=== PATIENT | female | born 1955 | race Caucasian/White ===

== ENCOUNTER 2018-03-12 15:19 | Emergency (ER) | payer OTHER ==
[2018-03-12 15:19] VITALS: BMI 29.2
[2018-03-12 15:53] VITALS: RESP 18
--- NOTE | 2018-03-12 16:19 | ED PDOC ---
"Arrival/HPI - General Chief Complaint: GI Problem Time Seen by Provider: 03/12/18 15:47 Historian: Patient, Family, [employer] (Family member on the phone) - History of Present Illness Narrative History of Present Illness (Text): 03/12/18 16:09 Pt is a 63 yr old female with PMH of DMII, HTN, and intestinal issues, presents today with daughter for left upper abdominal pain for the past 3 weeks or more and left chest pain for the past year. The patient does not speak any [place]yanese but through the family member states that she has the most discomfort after eating food and and takes over the counter medication that usually results in diarrhea. Pt has a lot of flatulence, nausea and dry mouth and decreased appetite as a result. Family member on the phone reports that she had an intestinal surgery in [place] about 2-4 yrs ago but family nor pt knows what was done. she takes Metformin, Atorvastatin and Metoprolol daily and is compliant with medications. Denies fever, shortness of breath, vomiting, GIB, dysuria, recent travel or any other pertinent finding. Time/Duration: > month Symptom Onset: Gradual Symptom Course: Unchanged Quality: Aching, Pressure, Tightness Severity Level: 4 Activities at Onset: Rest, Eating Context: Home Past Medical History - Provider Review Nursing Documentation Reviewed: Yes - Travel History Have you recently traveled outside [place] w/in the past 3 mons?: No - Infectious Disease Hx of Infectious Diseases: None - Tetanus Immunization Tetanus Immunization: Unknown - Cardiac Hx Cardiac Disorders: Yes Hx Hypertension: Yes - Pulmonary Hx Respiratory Disorders: No - Neurological Hx Neurological Disorder: No - HEENT Hx HEENT Disorder: Yes (uses glasses) - Renal Hx Renal Disorder: No - Endocrine/Metabolic Hx Endocrine Disorders: Yes Hx Diabetes Mellitus Type 2: Yes - Hematological/Oncological Hx Blood Disorders: No - Integumentary Hx Dermatological Disorder: No - Musculoskeletal/Rheumatological Hx Musculoskeletal Disorders: No Hx Falls: No - Gastrointestinal Hx Gastrointestinal Disorders: Yes Other/Comment: Gas pains, heart burn. - Genitourinary/Gynecological Hx Genitourinary Disorders: No - Psychiatric Hx Psychophysiologic Disorder: No Hx Substance Use: No - Surgical History Other/Comment: abdominal? - Anesthesia Hx Anesthesia: Yes Hx Anesthesia Reactions: No Hx Malignant Hyperthermia: No Family/Social History - Physician Review Nursing Documentation Reviewed: Yes Family/Social History: Unknown Family HX Smoking Status: Never Smoked Hx Alcohol Use: No Hx Substance Use: No Allergies/Home Meds Allergies/Adverse Reactions: Allergies No Known Allergies Allergy (Verified 02/11/16 00:56) Review of Systems - Review of Systems Systems not reviewed;Unavailable: Language Barrier Constitutional: Fatigue, Fevers Eyes: Normal ENT: Normal Respiratory: Normal Cardiovascular: Chest Pain. absent: Palpitations Gastrointestinal: Abdominal Pain, Stool Changes, Diarrhea, Nausea, Appetite Changes, Food Intolerance. absent: Constipation, Vomiting, Hematochezia, Hematemesis Genitourinary Female: Normal. absent: Dysuria, Frequency Musculoskeletal: Normal. absent: Arthralgias, Back Pain Skin: Normal Neurological: Normal Endocrine: Normal Hemo/Lymphatic: Normal Psychiatric: Normal Physical Exam Vital Signs Reviewed: Yes Vital Signs Temp Pulse Resp BP Pulse Ox 03/12/18 20:12 98.6 F 60 18 142/93 H 98 03/12/18 16:40 60 18 100 03/12/18 15:19 97.7 F 61 18 151/82 H 100 Temperature: Afebrile Blood Pressure: Hypertensive Pulse: Regular Respiratory Rate: Normal Appearance: Positive for: Well-Appearing, Non-Toxic, Comfortable Pain Distress: Mild Mental Status: Positive for: Alert and Oriented X 3 Finger Stick Blood Glucose: 218 - Systems Exam Head: Present: Atraumatic, Normocephalic Pupils: Present: PERRL Extroacular Muscles: Present: EOMI Conjunctiva: Present: Normal Mouth: Present: Moist Mucous Membranes Neck: Present: Normal Range of Motion Respiratory/Chest: Present: Clear to Auscultation, Good Air Exchange. No: Respiratory Distress, Accessory Muscle Use, Decreased Breath Sounds, Rales, Rhonchi, Tachypneic, Tender to Palpation Cardiovascular: Present: Regular Rate and Rhythm, Normal S1, S2. No: Murmurs, Irregular Rhythm, Tachycardic, Bradycardic Abdomen: Present: Normal Bowel Sounds. No: Tenderness, Distention, Peritoneal Signs, Rebound, Guarding, McBurney's Point Tender, Rovsing's Sign Present, Hernias, Mass/Organomegaly Back: Present: Normal Inspection. No: CVA Tenderness, Midline Tenderness, Paraspinal Tenderness Upper Extremity: Present: Normal Inspection, Normal ROM, NORMAL PULSES, Swelling (left forearm (for the past 8 mnths)), Neurovascularly Intact, Capillary Refill < 2s. No: Cyanosis, Edema, Tenderness, Erythema Lower Extremity: Present: Normal Inspection, NORMAL PULSES, Normal ROM, Temperature Abnormalties, Neurovascularly Intact, Capillary Refill < 2 s. No: Edema, CALF TENDERNESS, Cyanosis Neurological: Present: GCS=15, CN II-XII Intact, Speech Normal, Motor Func Grossly Intact Skin: Present: Warm, Dry, Normal Color. No: Rashes Lymphatic: No: Cervical Adenopathy, Axillary Adenopathy Psychiatric: Present: Alert, Oriented x 3, Normal Insight, Normal Concentration Medical Decision Making ED Course and Treatment: 03/12/18 16:19 Impression Pt is a 63 yr old female with PMH of DMII, HTN, and intestinal issues, presents today with daughter for left upper abdominal pain for the past 3 weeks or more and left chest pain for the past year. Working Dx: diverticulitis, PUD, bowel obstruction, mass Plan Labs Abdominal CT with IV contrast CXR, Cardiac ISO Pepcid Progress Note 03/12/18 17:21 Pt reports no change in abdominal discomfort after taking pepcid Fluids ordered and pending admin CT pending CXR reveals no active disease EKG reveals NSR with a rate of 69 03/12/18 19:42 No change in status; continues to have 'heartburn' Son at bedside who speaks [place] island[place] and reports that she had a biopsy procedure done in [place] via colonoscopy; she was given a ppi and H2 rep medina CT results still pending at this time UA reveals UTI-->Bactrim DS STAT 03/12/18 19:46 CT IMPRESSION: No acute findings. Discussed findings with family Advised to follow up with GI specialist for endoscopic exam to r/o PUD 03/12/18 20:14 Bactrim DS BID x 5 days #10 for UTI - Lab Interpretations Lab Results: 03/12/18 16:53 03/12/18 16:53 Lab Results 03/12/18 18:55: Urine Color Colorless, Urine Appearance Clear, Urine pH 7.0, Ur Specific Cher[place] <= 1.005, Urine Protein Negative, Urine Glucose (UA) Negative, Urine Ketones Negative, Urine Blood Negative, Urine Nitrate Negative, Urine Bilirubin Negative, Urine Urobilinogen 0.2, Ur Leukocyte Esterase Moderate H, Urine RBC Negative, Urine WBC 5 - 10, Ur Epithelial Cells 0 - 2, Urine Bacteria Trace 03/12/18 16:53: pO2 46, VBG pH 7.38, VBG pCO2 48.0, VBG HCO3 28.4 H, VBG Total CO2 29.9 H, VBG O2 Sat (Calc) 86.8 H, VBG Base Excess 2.5 H, VBG Potassium 3.9, Sodium 139.0, Chloride 104.0, Glucose 184 H, Lactate 1.6, FiO2 21.0, Venous Blood Potassium 3.9 03/12/18 16:53: Sodium 142, Chloride 103, Potassium 4.1, Carbon Dioxide 25, Anion Gap 18, BUN 11, Creatinine 0.6 L, Est GFR ( Amer) > 60, Est GFR ( Non-Af Amer) > 60, Random Glucose 169 H, Calcium 9.6, Total Bilirubin 0.3, AST 31, ALT 30, Alkaline Phosphatase 66, Lactate Dehydrogenase 454, Total Creatine Kinase 55, Troponin I < 0.01, Total Protein 8.1, Albumin 4.5, Globulin 3.6, Albumin/Globulin Ratio 1.2, Amylase 81, Lipase 46 03/12/18 16:53: PT 11.4, INR 1.00, APTT 31.5 03/12/18 16:53: WBC 9.3, RBC 6.05, Hgb 12.9, Hct 41.1, MCV 67.9 L, MCH 21.3 L, MCHC 31.4, RDW 14.8 H, Plt Count 282, MPV 9.4, Gran % 62.8, Lymph % (Auto) 30.0 , Hinds % (Auto) 6.1 H, Eos % (Auto) 0.6 L, Baso % (Auto) 0.5, Gran # 5.81, Lymph # (Auto) 2.8, Hinds # (Auto) 0.6, Eos # (Auto) 0.1, Baso # (Auto) 0.05 03/12/18 15:43: POC Glucose (mg/dL) 218 H - RAD Interpretation Narrative RAD Interpretations (Text): 03/12/18 17:13 No active appreciated on CXR 03/12/18 19:45 EXAM: CT Abdomen and Pelvis With Intravenous Contrast CLINICAL HISTORY: 63 years old, female; Pain; Abdominal pain; Acute; Additional info: R/O diverticulitis TECHNIQUE: Axial computed tomography images of the abdomen and pelvis with intravenous contrast. All CT scans at this facility use one or more dose reduction techniques, viz.: automated exposure control; ma/kV adjustment per patient size (including targeted exams where dose is matched to indication; i.e. head); or iterative reconstruction technique. CONTRAST: 100 mL of omni 350 administered intravenously. COMPARISON: No relevant prior studies available. FINDINGS: Lung bases: Unremarkable. No mass. No consolidation. ABDOMEN: Liver: Fatty infiltration of the liver. Gallbladder and bile ducts: The gallbladder is not visualized. No ductal dilation. Pancreas: Pancreas evaluation is limited. No ductal dilation. Spleen: Unremarkable. No splenomegaly. Adrenals: Unremarkable. No mass. Kidneys and ureters: Unremarkable. No solid mass. No hydronephrosis. Stomach and bowel: Bowel evaluation is limited due to lack of distention. Bowel evaluation is limited due to lack of distention. No mucosal thickening. PELVIS: Appendix: No findings to suggest acute appendicitis. CARLINE AC | Preliminary Radiology Report MACHINIST 2ND SHIFT (QA) DISCREPANCY? If there is a discrepancy between the preliminary and final interpretation, please notify [facility] via [email or web address]. If you do not have access to our QA portal, call our QA team at [phone] CONFIDENTIALITY STATEMENT This report is intended only for the use of the referring physician, and only in accordance with law, If you received this in error, call [phone] Page 2 of 2 Bladder: Unremarkable. No mass. Reproductive: Unremarkable as visualized. ABDOMEN and PELVIS: Intraperitoneal space: Unremarkable. No free air. No significant fluid collection. Bones/joints: No acute fracture. No dislocation. Soft tissues: Unremarkable. Vasculature: Atherosclerotic changes of the aorta. No abdominal aortic aneurysm. Lymph nodes: Unremarkable. No enlarged lymph nodes. IMPRESSION: No acute findings. Radiology Orders: 03/12/18 16:05 CHEST PORTABLE [RAD] Stat 03/12/18 16:06 ABD & PELVIS IV CONTRAST ONLY [CT] Stat - Medication Orders Current Medication Orders: Discontinued Medications Famotidine (Pepcid) 20 mg IVP STAT STA Stop: 03/12/18 16:05 Last Admin: 03/12/18 16:55 Dose: 20 mg IVP Administration Document 03/12/18 16:55 OCS (Rec: 03/12/18 16:55 OCS [id number]) Charges for Administration # of IVP Administrations 1 Sodium Chloride (Sodium Chloride 0.9%) 500 mls @ 999 mls/hr IV .Q31M STA Stop: 03/12/18 17:49 Last Admin: 03/12/18 17:33 Dose: 999 mls/hr eMAR Start Stop Document 03/12/18 17:33 OCS (Rec: 03/12/18 17:34 OCS [id number]) Intravenous Solution Start Date 03/12/18 Start Time 17:33 End Date 03/12/18 End time 18:03 Total Infusion Time 30 Sucralfate (Carafate Oral Susp) 1 gm PO STAT STA Stop: 03/12/18 20:01 Last Admin: 03/12/18 20:20 Dose: 1 gm Trimethoprim/Sulfamethoxazole (Bactrim Ds Tab) 1 tab PO STAT STA PRN Reason: Protocol Stop: 03/12/18 20:14 Last Admin: 03/12/18 20:20 Dose: 1 tab Disposition/Present on Arrival - Present on Arrival Any Indicators Present on Arrival: Yes History of DVT/PE: No History of Uncontrolled Diabetes: No Urinary Catheter: No History of Decub. Ulcer: No History Surgical Site Infection Following: None - Disposition Have Diagnosis and Disposition been Completed?: Yes Diagnosis: Gastritis and duodenitis, UTI (urinary tract infection) Disposition: HOME/ ROUTINE Disposition Time: 19:54 Patient Plan: Discharge Condition: STABLE Discharge Instructions (ExitCare): Urinary Tract Infection, Adult (DC), Gastritis (DC) Additional Instructions: Carline, thank you for letting us take care of you today. Your provider was DARRIUS Liz. You were treated for gastritis and urinary tract infection. The emergency medical care you received today was directed at your acute symptoms. If you were prescribed any medication, please fill it and take as directed. It may take several days for your symptoms to resolve. Return to the Emergency Department if your symptoms worsen, do not improve, or if you have any other problems. We recommend that you follow up with Dr Cespedes to discuss scheduling a endoscopic exam to see if you have a gastric or duodenal ulcer Please contact your doctor or call one of the physicians/clinics you have been referred to that are listed on the Patient Visit Information form that is included in your discharge packet. Bring any paperwork you were given at discharge with you along with any medications you are taking to your follow up visit. Our treatment cannot replace ongoing medical care by a primary care provider (PCP) outside of the emergency department. Thank you for allowing the [facility] team to be part of your care today. If you had an X-Ray or CT scan: A Radiologist will review the ED reading if any change in treatment is needed we will contact you. If you had a blood, urine, or wound culture: It will take several days for the results, if any change in treatment is needed we will contact you. Prescriptions: Sucralfate [Carafate] 1 gm PO Q6 5 Days #20 tablet Sulfamethoxazole/Trimethoprim [Bactrim DS 800 mg-160 mg] 1 tab PO BID 5 Days # 10 tab traMADol [Ultram] 50 mg PO Q12 #10 tab Forms: [employer] (Guyanese)"
[2018-03-12 16:40] VITALS: PULSE 60
--- NOTE | 2018-03-12 16:41 | RAD ---
HISTORY: Chest pain COMPARISON: Comparison chest dated 02/11/2016 FINDINGS: LUNGS: No active pulmonary disease. PLEURA: No significant pleural effusion identified, no pneumothorax apparent. CARDIOVASCULAR: Normal. OSSEOUS STRUCTURES: No significant abnormalities. VISUALIZED UPPER ABDOMEN: Normal. OTHER FINDINGS: None. IMPRESSION: No active disease.
[2018-03-12 17:08] LABS: BASO # 0.05 K/mm3 (0.0-2.0); BASO % 0.5 % (0.0-3.0); EOS # 0.1 (0.0-0.7); EOS % 0.6 % (1.5-5.0); GRAN # 5.81 (1.4-6.5); GRAN % 62.8 % (50.0-68.0); HEMOGLOBIN 12.9 g/dL (12.0-16.0); LYMPH # 2.8 (1.2-3.4); MEAN CELL VOLUME 67.9 fl (80.0-105.0); MEAN CORPUSCULAR HEMOGLOBIN 21.3 pg (25.0-35.0); MEAN CORPUSCULAR HGB CONC 31.4 g/dl (31.0-37.0); MEAN PLATELET VOLUME 9.4 fl (7.0-11.0); MONO # 0.6 (0.1-0.6); MONO % 6.1 % (1.0-6.0); RBC 6.05 10^6/uL (3.5-6.1); RED CELL DISTRIBUTION WIDTH 14.8 % (11.5-14.5); WHITE BLOOD COUNT 9.3 10^3/ul (4.5-11.0)
[2018-03-12 17:11] LABS: VENOUS BLOOD GAS BASE EXCESS 2.5 mmol/L (0.0-2.0); VENOUS BLOOD GAS PO2 46 mm/Hg (30-55); VENOUS BLOOD PH 7.38 (7.32-7.43)
[2018-03-12 17:19] LABS: ALB/GLOB RATIO 1.2 (1.1-1.8); ALBUMIN 4.5 g/dL (3.0-4.8); ALT/SGPT 30 U/L (7-56); AMYLASE 81 U/L (35-125); AST/SGOT 31 U/L (14-36); BLOOD UREA NITROGEN 11 mg/dL (7-21); CALCIUM 9.6 mg/dL (8.4-10.5); GFR AFRICAN-AMERICAN > 60; GFR NON-AFRICAN AMERICAN > 60; LIPASE 46 U/L (23-300)
[2018-03-12] MEDS ORDERED: Sodium Chloride 0.9% 500 ML IV STA (17:19)
[2018-03-12 17:21] LABS: PARTIAL THROMBOPLASTIN TIME 31.5 Seconds (25.1-36.5); PROTHROMBIN TIME 11.4 SECONDS (9.4-12.5)
[2018-03-12 17:30] LABS: TROPONIN I < 0.01 ng/mL
[2018-03-12] MEDS ORDERED: Iohexol 350 MG/100 ML VIAL ONE (18:23)
[2018-03-12 19:16] LABS: URINE APPEARANCE CLEAR (CLEAR); URINE BILIRUBIN NEGATIVE (NEGATIVE); URINE BLOOD NEGATIVE (NEGATIVE); URINE COLOR COLORLESS (YELLOW); URINE GLUCOSE (UA) NEGATIVE (NEGATIVE); URINE LEUKOCYTE ESTERASE MODERATE Leu/uL (NEGATIVE); URINE PROTEIN NEGATIVE mg/dL (<30 mg/dL); URINE UROBILINOGEN 0.2 E.U./dL (<1 E.U./dL)
[2018-03-12 19:26] LABS: URINE RBC NEGATIVE /hpf (0-2)
[2018-03-12 19:27] LABS: URINE BACTERIA TRACE (NEG); URINE EPITHELIAL CELLS 0 - 2 /hpf (0-5)
[2018-03-12] MEDS ORDERED: Sucralfate 1 gm/10 ml Oral Susp UD PO STA (20:00)
[2018-03-12 20:13] VITALS: BP 142/93; TEMP 98.6; O2SAT 98
[2018-03-12] MEDS ORDERED: Tmp-Smz 800 mg-160 mg DS Tab PO STA (20:13)
--- NOTE | 2018-03-13 08:28 | CT ---
PROCEDURE: CT Abdomen and Pelvis without intravenous contrast HISTORY: R/O Diverticulitis COMPARISON: None. TECHNIQUE: Technique. Contrast dose: Radiation dose: Total exam DLP = 326 mGy-cm. This CT exam was performed using one or more of the following dose reduction techniques: Automated exposure control, adjustment of the mA and/or kV according to patient size, and/or use of iterative reconstruction technique. FINDINGS: LOWER THORAX: Unremarkable. LIVER: Unremarkable. No gross lesion or ductal dilatation. GALLBLADDER AND BILE DUCTS: Absent.. PANCREAS: Unremarkable. No gross lesion or ductal dilatation. SPLEEN: Unremarkable. ADRENALS: Unremarkable. No mass. KIDNEYS AND URETERS: Unremarkable. No hydronephrosis. No solid mass. VASCULATURE: Unremarkable. No aortic aneurysm. BOWEL: Unremarkable. No obstruction. No gross mural thickening. APPENDIX: Unremarkable. Normal appendix. PERITONEUM: Unremarkable. No free fluid. No free air. LYMPH NODES: Unremarkable. No enlarged lymph nodes. BLADDER: Unremarkable. REPRODUCTIVE: Unremarkable. BONES: No acute fracture. OTHER FINDINGS: None. IMPRESSION: Unremarkable non contrast enhanced CT of the abdomen and pelvis.
--- NOTE | 2018-03-13 22:58 | CARD ---
APPROVED REPORT EKG Measurement Heart [id number] <Conclusion> Normal sinus rhythm Normal ECG
== END 2018-03-12 20:21 | disposition home or self-care (01) ==
LOC: ED 15:19
DX: K29.70 Gastritis, unspecified, without bleeding (principal); K29.80 Duodenitis without bleeding; N39.0 Urinary tract infection, site not specified; I10 Essential (primary) hypertension; E11.9 Type 2 diabetes mellitus without complications
CPT/HCPCS: 71045; 74177; 80053; 81001; 82150; 82550; 82803; 82948; 83615; 83690; 84484; 85025; 85610; 85730; 87086; 93005; 96374; 99284; J7040; Q9967

== ENCOUNTER 2018-03-16 01:29 | Observation (INO) | payer OTHER ==
[2018-03-16 01:41] VITALS: BMI 27.3
--- NOTE | 2018-03-16 01:54 | ED PDOC ---
Arrival/HPI - General Chief Complaint: GI Problem Time Seen by Provider: 03/16/18 01:40 Historian: Patient, Family - History of Present Illness Narrative History of Present Illness (Text): 03/16/18 01:54 Carline Reinoso is a 63 year old female who presents to the Emergency department accompanied by family complaining of abdominal pain. 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 Family note patient was recently seen in the Emergency department a few days prior on 03/13/2018 for similar symptoms and discharged home. Patient denies any fever, chills, shortness of breath, diarrhea, urinary symptoms, back pain, neck pain, headache, dizziness, or any other complaints. Symptom Onset: Gradual Symptom Course: Unchanged Activities at Onset: Light Context: Home Past Medical History - Provider Review Nursing Documentation Reviewed: Yes - Infectious Disease Hx of Infectious Diseases: None - Tetanus Immunization Tetanus Immunization: Unknown - Cardiac Hx Cardiac Disorders: Yes Hx Hypertension: Yes - Pulmonary Hx Respiratory Disorders: No - Neurological Hx Neurological Disorder: No - HEENT Hx HEENT Disorder: Yes (uses glasses) - Renal Hx Renal Disorder: No - Endocrine/Metabolic Hx Endocrine Disorders: Yes Hx Diabetes Mellitus Type 2: Yes - Hematological/Oncological Hx Blood Disorders: No - Integumentary Hx Dermatological Disorder: No - Musculoskeletal/Rheumatological Hx Musculoskeletal Disorders: No Hx Falls: No - Gastrointestinal Hx Gastrointestinal Disorders: Yes Other/Comment: Gas pains, heart burn. - Genitourinary/Gynecological Hx Genitourinary Disorders: No - Psychiatric Hx Psychophysiologic Disorder: No Hx Substance Use: No - Surgical History Other/Comment: abdominal? - Anesthesia Hx Anesthesia: Yes Hx Anesthesia Reactions: No Hx Malignant Hyperthermia: No Family/Social History - Physician Review Nursing Documentation Reviewed: Yes Family/Social History: Unknown Family HX Smoking Status: Never Smoked Hx Alcohol Use: No Hx Substance Use: No Allergies/Home Meds Allergies/Adverse Reactions: Allergies No Known Allergies Allergy (Verified 02/11/16 00:56) Home Medications: Home Meds Medication Instructions Recorded Confirmed Glimepiride [Amaryl] 1 mg PO DAILY 03/16/18 03/16/18 Omeprazole 40 mg PO DAILY 03/16/18 03/16/18 Ranitidine HCl [Zantac] 150 mg PO BID 03/16/18 03/16/18 Rosuvastatin Calcium [Crestor] 10 mg PO HS 03/16/18 03/16/18 metFORMIN [glucOPHAGE] 500 mg PO BID 03/16/18 03/16/18 Review of Systems - Physician Review All systems were reviewed & negative as marked: Yes - Review of Systems Constitutional: Normal. absent: Fevers Eyes: Normal ENT: Normal Respiratory: Normal. absent: SOB, Cough Cardiovascular: Chest Pain Gastrointestinal: Abdominal Pain, Nausea, Vomiting. absent: Diarrhea Genitourinary Female: Normal. absent: Dysuria, Frequency, Hematuria, Urine Output Changes Musculoskeletal: Normal. absent: Back Pain, Neck Pain Skin: Normal. absent: Rash Neurological: Normal. absent: Headache, Dizziness Endocrine: Normal Hemo/Lymphatic: Normal Psychiatric: Normal Physical Exam Vital Signs Reviewed: Yes Vital Signs Temp Pulse Pulse Resp BP Pulse Ox 03/16/18 14:04 76 18 134/78 98 03/16/18 13:21 97.8 F 63 63 18 139/73 03/16/18 10:23 64 152/66 H 03/16/18 09:11 63 18 139/73 100 03/16/18 05:30 72 18 138/68 100 03/16/18 01:49 97.8 F 73 18 155/84 H 99 Temperature: Afebrile Blood Pressure: Normal Pulse: Regular Respiratory Rate: Normal Appearance: Positive for: Well-Appearing, Non-Toxic, Comfortable Pain Distress: None Mental Status: Positive for: Alert and Oriented X 3 - Systems Exam Head: Present: Atraumatic, Normocephalic Pupils: Present: PERRL Extroacular Muscles: Present: EOMI Conjunctiva: Present: Normal Mouth: Present: Moist Mucous Membranes Neck: Present: Normal Range of Motion Respiratory/Chest: Present: Clear to Auscultation, Good Air Exchange. No: Respiratory Distress, Accessory Muscle Use Cardiovascular: Present: Regular Rate and Rhythm, Normal S1, S2. No: Murmurs Abdomen: No: Tenderness, Distention, Peritoneal Signs Back: Present: Normal Inspection Upper Extremity: Present: Normal Inspection. No: Cyanosis, Edema Lower Extremity: Present: Normal Inspection. No: Edema Neurological: Present: GCS=15, CN II-XII Intact, Speech Normal Skin: Present: Warm, Dry, Normal Color. No: Rashes Psychiatric: Present: Alert, Oriented x 3, Normal Insight, Normal Concentration Medical Decision Making ED Course and Treatment: 03/16/18 01:54 Impression: 63 year old female complaining of gas-like upper abdominal pain and left-sided chest pain, nausea, vomiting. Plan: -- CT Abdomen and Pelvis -- Labs, lipase -- Urinalysis -- IV fluids -- Pepcid -- Protonix -- Reassess and disposition Prior Visits: Notes and results from previous visits were reviewed. Progress Notes: 03/16/18 04:45 CT Abdomen and Pelvis shows: Limitations: Motion artifact - mild. Lung bases: Minimal atelectasis. ABDOMEN: Liver: Mild fatty infiltration. Punctate calcification. Gallbladder and bile ducts: Gallbladder not visualized. No significant ductal dilation. Pancreas: No ductal dilation. No mass. Spleen: No splenomegaly. Adrenals: No mass. Kidneys and ureters: No mass. No hydronephrosis. Stomach and bowel: Mild mural thickening versus under distention gastric antrum. No definite bowel wall thickening. No obstruction. PELVIS: Appendix: Normal caliber. No inflammation. Bladder: Unremarkable. Reproductive: Unremarkable as visualized. ABDOMEN and PELVIS: Intraperitoneal space: No significant fluid collection. No free air. Bones/joints: Early degenerative changes of spine. No acute fracture. Soft tissues: Laparotomy scar. Vasculature: Mild atherosclerotic disease. No aneurysm. Lymph nodes: No pathologically enlarged lymph nodes. IMPRESSION: 1. Mild focal gastric wall thickening versus underdistention. Clinical correlation is needed. 2. Incidental/non-acute findings are described above. 03/16/18 05:15 Reviewed EKG, NSR at [address]-segment elevations or depressions, no T-wave inversions, normal intervals. 03/16/18 05:50 Case discussed with medical case manager sr. consultant, who is aware and agrees with plan. 03/16/18 05:[address] Saha, who is aware and agrees with plan. Accepts pt in to hospitalist service. - Lab Interpretations Lab Results: 03/16/18 02:15 03/16/18 02:15 Lab Results 03/16/18 04:45: Urine Color Yellow, Urine Appearance Clear, Urine pH 7.0, Ur Specific [place] 1.010, Urine Protein Negative, Urine Glucose (UA) Negative, Urine Ketones Negative, Urine Blood Negative, Urine Nitrate Negative, Urine Bilirubin Negative, Urine Urobilinogen 0.2, Ur Leukocyte Esterase Trace H, Urine RBC 0 - 2, Urine WBC 1 - 3, Ur Epithelial Cells 6 - 8, Urine Bacteria Few 03/16/18 02:15: Troponin I < 0.01 03/16/18 02:15: Sodium 128 L, Potassium 3.9, Chloride 90 L, Carbon Dioxide 24, Anion Gap 18, BUN 9, Creatinine 0.7, Est GFR ( Amer) > 60, Est GFR (Non- Af Amer) > 60, Random Glucose 201 H, Calcium 9.1, Total Bilirubin 0.3, AST 26, ALT 26, Alkaline Phosphatase 63, Total Protein 8.0, Albumin 4.3, Globulin 3.7, Albumin/Globulin Ratio 1.2, Lipase 24 03/16/18 02:15: WBC 13.4 H D, RBC 5.74, Hgb 12.2, Hct 38.3, MCV 66.7 L, MCH 21.3 L, MCHC 31.9, RDW 14.6 H, Plt Count 322, MPV 9.9, Gran % 68.6 H, Lymph % ( Auto) 27.0, [place] % (Auto) 3.9, Eos % (Auto) 0.2 L, Baso % (Auto) 0.3, Gran # 9.20 H, Lymph # (Auto) 3.6 H, [place] # (Auto) 0.5, Eos # (Auto) 0.0, Baso # (Auto ) 0.04 I have reviewed the lab results: Yes - RAD Interpretation Radiology Orders: 03/16/18 02:40 ABD & PELVIS IV CONTRAST ONLY [CT] Stat 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: Radiologist - EKG Interpretation Interpreted by ED Physician: Yes Type: 12 lead EKG - Medication Orders Current Medication Orders: Discontinued Medications Aspirin (Ecotrin) 325 mg PO STAT STA Stop: 03/16/18 09:44 Last Admin: 03/16/18 10:22 Dose: 325 mg Aspirin (Aspirin Chewable) 81 mg PO DAILY [place] Atorvastatin Calcium (Lipitor) 10 mg PO DIN [place] Last Admin: 03/16/18 17:11 Dose: 10 mg Famotidine (Pepcid) 20 mg IVP STAT STA Stop: 03/16/18 01:59 Last Admin: 03/16/18 02:24 Dose: 20 mg IVP Administration Document 03/16/18 02:24 MS (Rec: 03/16/18 02:24 MS [id number]) Charges for Administration # of IVP Administrations 1 Sodium Chloride (Sodium Chloride 0.9%) 1,000 mls @ 100 mls/hr IV .Q10H STA Stop: 03/16/18 11:57 Last Admin: 03/16/18 02:25 Dose: 100 mls/hr eMAR Start Stop Document 03/16/18 02:25 MS (Rec: 03/16/18 02:25 MS [id number]) Intravenous Solution Start Date 03/16/18 Start Time 02:25 Sodium Chloride (Sodium Chloride 0.9%) 1,000 mls @ 125 mls/hr IV .Q8H [place] Sodium Chloride (Sodium Chloride 0.9%) 1,000 mls @ 150 mls/hr IV .Q6H40M [facility] Last Admin: 03/16/18 10:23 Dose: 150 mls/hr eMAR Start Stop Document 03/16/18 10:23 GMD (Rec: 03/16/18 10:23 GMD [id number]) Intravenous Solution Start Date 03/16/18 Start Time 10:23 Insulin Human Lispro (Humalog Low) 0 units SC ACHS [facility] PRN Reason: Protocol Last Admin: 03/16/18 17:04 Dose: Not Given Non-Admin Reason: Blood Sugar Parameter MAR Blood Glucose Document 03/16/18 17:04 SOUSV (Rec: 03/16/18 17:04 SOUSV [id number]) Blood Glucose Finger Stick Blood Glucose (70-120) 130 Metoprolol Tartrate (Lopressor) 25 mg PO BID [facility] Last Admin: 03/16/18 17:12 Dose: 25 mg MAR Pulse and Blood Pressure Document 03/16/18 17:12 SOUSV (Rec: 03/16/18 17:14 SOUSV [id number]) Pulse Pulse Rate (60-90) 62 Blood Pressure Blood Pressure (100/60-150/90) 128/69 Pantoprazole Sodium (Protonix Inj) 40 mg IVP ONCE STA Stop: 03/16/18 02:00 Last Admin: 03/16/18 02:24 Dose: 40 mg IVP Administration Document 03/16/18 02:24 MS (Rec: 03/16/18 02:24 MS [id number]) Charges for Administration # of IVP Administrations 1 Pantoprazole Sodium (Protonix Inj) 40 mg IVP DAILY [place] Pneumococcal Polyvalent Vaccine (Pneumovax 23 Vaccine) 0.5 ml IM .ONCE ONE Stop: 03/16/18 13:59 - Scribe Statement The provider has reviewed the documentation as recorded by the Deeptiibcamilo Barraza Provider Scribe Attestation: All medical record entries made by the Scribe were at my direction and personally dictated by me. I have reviewed the chart and agree that the record accurately reflects my personal performance of the history, physical exam, medical decision making, and the department course for this patient. I have also personally directed, reviewed, and agree with the discharge instructions and disposition. Disposition/Present on Arrival - Present on Arrival Any Indicators Present on Arrival: No History of DVT/PE: No History of Uncontrolled Diabetes: No Urinary Catheter: No History of Decub. Ulcer: No History Surgical Site Infection Following: None - Disposition Have Diagnosis and Disposition been Completed?: Yes Diagnosis: Chest pain Disposition: HOSPITALIZED Disposition Time: 05:55 Condition: GOOD
[2018-03-16] MEDS ORDERED: Sodium Chloride 0.9% 1,000 ML IV STA (01:58)
[2018-03-16 02:01] VITALS: RESP 18; TEMP 97.8
[2018-03-16 02:36] LABS: BASO # 0.04 K/mm3 (0.0-2.0); BASO % 0.3 % (0.0-3.0); EOS % 0.2 % (1.5-5.0); GRAN # 9.2 (1.4-6.5); GRAN % 68.6 % (50.0-68.0); HEMOGLOBIN 12.2 g/dL (12.0-16.0); LYMPH # 3.6 (1.2-3.4); MEAN CELL VOLUME 66.7 fl (80.0-105.0); MEAN CORPUSCULAR HEMOGLOBIN 21.3 pg (25.0-35.0); MEAN CORPUSCULAR HGB CONC 31.9 g/dl (31.0-37.0); MEAN PLATELET VOLUME 9.9 fl (7.0-11.0); MONO # 0.5 (0.1-0.6); MONO % 3.9 % (1.0-6.0); RBC 5.74 10^6/uL (3.5-6.1); RED CELL DISTRIBUTION WIDTH 14.6 % (11.5-14.5); WHITE BLOOD COUNT 13.4 10^3/ul (4.5-11.0)
[2018-03-16 02:45] LABS: ALB/GLOB RATIO 1.2 (1.1-1.8); ALBUMIN 4.3 g/dL (3.0-4.8); ALT/SGPT 26 U/L (7-56); AST/SGOT 26 U/L (14-36); BLOOD UREA NITROGEN 9 mg/dL (7-21); CALCIUM 9.1 mg/dL (8.4-10.5); GFR AFRICAN-AMERICAN > 60; GFR NON-AFRICAN AMERICAN > 60; LIPASE 24 U/L (23-300)
[2018-03-16] MEDS ORDERED: Iohexol 350 MG/100 ML VIAL ONE (03:16)
--- NOTE | 2018-03-16 04:39 | CT ---
EXAM: CT Abdomen and Pelvis With Intravenous Contrast CLINICAL HISTORY: 63 years old, female; Pain; Abdominal pain; Additional info: Abd pain TECHNIQUE: Axial computed tomography images of the abdomen and pelvis with intravenous contrast. All CT scans at this facility use one or more dose reduction techniques, viz.: automated exposure control; ma/kV adjustment per patient size (including targeted exams where dose is matched to indication; i.e. head); or iterative reconstruction technique. Coronal and sagittal reformatted images were created and reviewed. CONTRAST: 96 mL of OMNI 350 administered intravenously. COMPARISON: CT - ABD PELVIS IV CONTRAST ONLY 2018-03-12 18:43 FINDINGS: Limitations: Motion artifact - mild. Lung bases: Minimal atelectasis. ABDOMEN: Liver: Mild fatty infiltration. Punctate calcification. Gallbladder and bile ducts: Gallbladder not visualized. No significant ductal dilation. Pancreas: No ductal dilation. No mass. Spleen: No splenomegaly. Adrenals: No mass. Kidneys and ureters: No mass. No hydronephrosis. Stomach and bowel: Mild mural thickening versus under distention gastric antrum. No definite bowel wall thickening. No obstruction. PELVIS: Appendix: Normal caliber. No inflammation. Bladder: Unremarkable. Reproductive: Unremarkable as visualized. ABDOMEN and PELVIS: Intraperitoneal space: No significant fluid collection. No free air. Bones/joints: Early degenerative changes of spine. No acute fracture. Soft tissues: Laparotomy scar. Vasculature: Mild atherosclerotic disease. No aneurysm. Lymph nodes: No pathologically enlarged lymph nodes. IMPRESSION: 1. Mild focal gastric wall thickening versus underdistention. Clinical correlation is needed. 2. Incidental/non-acute findings are described above.
[2018-03-16 05:23] LABS: URINE BILIRUBIN NEGATIVE (NEGATIVE); URINE BLOOD NEGATIVE (NEGATIVE); URINE GLUCOSE (UA) NEGATIVE (NEGATIVE); URINE LEUKOCYTE ESTERASE TRACE Leu/uL (NEGATIVE); URINE PROTEIN NEGATIVE mg/dL (<30 mg/dL); URINE UROBILINOGEN 0.2 E.U./dL (<1 E.U./dL)
[2018-03-16 05:40] LABS: URINE APPEARANCE CLEAR (CLEAR); URINE COLOR YELLOW (YELLOW)
[2018-03-16 05:48] LABS: URINE BACTERIA FEW (NEG); URINE RBC 0 - 2 /hpf (0-2)
[2018-03-16] MEDS ORDERED: Insulin Lispro 1 UNITS/0.01 ML ONE (07:58)
[2018-03-16] MEDS: Insulin Lispro (humaLOG) LOW Coverage SC SCH ×3 (07:58→17:04)
[2018-03-16 09:37] LABS: HDL CHOLESTEROL 39 mg/dL (29-60)
[2018-03-16] MEDS ORDERED: Aspirin 325 mg EC Tablets PO STA (09:43)
[2018-03-16] MEDS ORDERED: Sodium Chloride 0.9% 1,000 ML IV SCH ×2 (09:45→09:46)
[2018-03-16 09:47] LABS: LDL CHOLESTEROL 96 mg/dL (0-129)
[2018-03-16 09:49] LABS: TROPONIN I < 0.01 ng/mL
--- NOTE | 2018-03-16 12:54 | CARD ---
APPROVED REPORT EKG Measurement Heart [id number] <Conclusion> Normal sinus rhythm RVCD LVH by voltage No change
[2018-03-16] MEDS ORDERED: Pneumococcal 23-Valent Vaccine IM ONE (13:58)
[2018-03-16 14:05] VITALS: O2SAT 98
--- NOTE | 2018-03-16 14:31 | CON ---
DATE: 03/16/2018 GASTROINTESTINAL CONSULTATION REQUESTING PHYSICIAN: Dr. Becker. REASON FOR CONSULT: I have been asked to see this 63-year-old female who comes to the hospital with approximately 4 days of intermittent gassy abdominal pain in the mid abdomen with one episode of vomiting yesterday and several episodes of postprandial diarrhea. The patient vomited yesterday after having salad with ranch dressing. She states that when she has these gas pain, she has discomfort in her chest as well as weakness in the legs and dryness of the mouth. She denies any weight loss, hematemesis, rectal bleeding, or melena. She denies any recent travel. PAST MEDICAL HISTORY: Notable for type 2 diabetes mellitus, hypertension, and hyperlipidemia. SOCIAL HISTORY: She denies cigarette smoking or alcohol use. FAMILY HISTORY: Noncontributory. Note, the patient does not speak Serbian and history is obtained from the son who was in the room with the patient. PHYSICAL EXAMINATION: GENERAL: Well-developed female lying in bed, in no acute distress. VITAL SIGNS: Reveal temperature of 97.8, blood pressure 152/66, heart rate of 64. HEENT: Reveal sclerae to be white. Conjunctivae pink. Oral mucosa is moist. NECK: Supple. CHEST: Reveals lungs to be clear. HEART: Reveals a regular rate and rhythm. ABDOMEN: Soft, nontender. EXTREMITIES: Show no edema. LABORATORY DATA: Reveals white blood cell count 13.4, hemoglobin 12.2, and platelet count 322,000. Chemistries reveal sodium 128. Blood sugar 201. AST, ALT, and alk phos were all normal. CT scan of the abdomen performed on this ER visit shows nonspecific focal thickening of the stomach, most likely secondary to collapse of the stomach and under distention. The patient also had a CT scan of the abdomen and pelvis 4 days ago, which was normal. IMPRESSION: 1. Possible gastroenteritis with gassy abdominal pain, postprandial diarrhea, and one episode of vomiting. 2. Type 2 diabetes mellitus. RECOMMENDATIONS: 1. Check stool for C and S, O and P, and C. diff. 2. Continue PPI. 3. If the patient does not have any further nausea and vomiting, can start in a low-fat, low-residue ADA diet. 4. She can have an elective outpatient endoscopy, but no plans for an endoscopy at this time. Nick Rueda MD [facility] # [id number]
[2018-03-16 17:04] LABS: BLOOD UREA NITROGEN 8 mg/dL (7-21); CALCIUM 9.3 mg/dL (8.4-10.5); GFR AFRICAN-AMERICAN > 60; GFR NON-AFRICAN AMERICAN > 60
[2018-03-16 17:16] LABS: TROPONIN I < 0.01 ng/mL
[2018-03-16 17:17] VITALS: BP 128/69
--- NOTE | 2018-03-16 17:55 | CP.PCM.HP ---
<Pablo Miranda - Last Filed: 03/16/18 17:38> History of Present Illness - History of Present Illness History of Present Illness: CC: Mid epigastric discomfort, vomiting HPI: Patient is a 63 year old female with past medical history of DM2 and HTN who presents with mid epigastric tenderness, nausea, vomiting and generalized weakness. Patient is joined by her son who assists in translation. Patient reports that beginning last evening she began experiencing gastric discomfort described as a bubble followed by vomiting non-billious non bloody vomit consistent of previous ingested food. Patient reports generalized weakness surrounding her episode. Patient indicates that she has had limited oral intake over the past 12 hours. Patient reports diarrhea episodes over past 12-24 hours. Patient denies numbness, focal deficit, dizziness, loss of consciousness , paralysis. Patient indicates during time of interview after receiving fluids that she is feeling better. Patient denies headache, changes in vision, nasal drainage, shortness of breath, pleuritc pain, constipation, skin changes. PMH: DM2, HTN PSH: SBO surgery with resection of small bowel in 2011 SOChx: Denies tobacco, ETOH, ID - Lives with son and , able to preform ADL ambulates without assistance of walker or cane ALL: NKDA MEDS: MAR reviewed Present on Admission - Present on Admission Any Indicators Present on Admission: No Review of Systems - Review of Systems All systems: reviewed and no additional remarkable complaints except (as mentioned in HPI) Past Patient History - Infectious Disease Hx of Infectious Diseases: None - Tetanus Immunizations Tetanus Immunization: Unknown - Past Medical History & Family History Past Medical History?: Yes - Past Social History Smoking Status: Never Smoked - CARDIAC Hx Cardiac Disorders: Yes Hx Hypercholesterolemia: Yes Hx Hypertension: Yes - PULMONARY Hx Respiratory Disorders: No - NEUROLOGICAL Hx Neurological Disorder: No - HEENT Hx HEENT Problems: Yes (uses glasses) - RENAL Hx Chronic Kidney Disease: No - ENDOCRINE/METABOLIC Hx Endocrine Disorders: Yes Hx Diabetes Mellitus Type 2: Yes - HEMATOLOGICAL/ONCOLOGICAL Hx Blood Disorders: No - INTEGUMENTARY Hx Dermatological Problems: No - MUSCULOSKELETAL/RHEUMATOLOGICAL Hx Musculoskeletal Disorders: No Hx Falls: No - GASTROINTESTINAL Hx Gastrointestinal Disorders: Yes Hx Ulcer: Yes Other/Comment: Gas pains, heartburn x 2-3 weeks, gastritis, duodenitis - GENITOURINARY/GYNECOLOGICAL Hx Urinary Tract Infection: Yes - PSYCHIATRIC Hx Psychophysiologic Disorder: No Hx Substance Use: No - SURGICAL HISTORY Hx Surgeries: Yes Other/Comment: abd sx possible intestinal infection in [place] - ANESTHESIA Hx Anesthesia: Yes Hx Anesthesia Reactions: No Hx Malignant Hyperthermia: No Meds Allergies/Adverse Reactions: Allergies Allergy/AdvReac Type Severity Reaction Status Date / Time No Known Allergies Allergy Verified 02/11/16 00:56 Physical Exam - Constitutional Appears: No Acute Distress - Head Exam Head Exam: ATRAUMATIC, NORMAL INSPECTION, NORMOCEPHALIC - Eye Exam Eye Exam: EOMI, PERRL - Respiratory Exam Respiratory Exam: Clear to Auscultation Bilateral, NORMAL BREATHING PATTERN. absent: Rales, Rhonchi - Cardiovascular Exam Cardiovascular Exam: REGULAR RHYTHM, +S1, +S2 - GI/Abdominal Exam GI & Abdominal Exam: Normal Bowel Sounds, Soft, Tenderness (mid epigastric). absent: Firm, Guarding - Extremities Exam Extremities exam: Positive for: normal capillary refill, pedal pulses present. Negative for: calf tenderness, pedal edema - Neurological Exam Neurological exam: Alert, Normal Gait, Oriented x3 - Psychiatric Exam Psychiatric exam: Flat Affect, Normal Mood - Skin Skin Exam: Dry, Warm Results - Vital Signs Recent Vital Signs: Last Vital Signs Temp 97.8 F 03/16/18 13:21 Pulse 62 03/16/18 17:12 Resp 18 03/16/18 15:16 BP 128/69 03/16/18 17:12 Pulse Ox 98 03/16/18 14:04 - Labs Result Diagrams: 03/16/18 02:15 03/16/18 16:48 Labs: Laboratory Results - last 24 hr 03/16/18 03/16/18 03/16/18 07:30 09:15 14:13 Sodium Potassium Chloride Carbon Dioxide Anion Gap BUN Creatinine Est GFR ( Amer) Est GFR (Non-Af Amer) POC Glucose (mg/dL) 162 H Random Glucose Hemoglobin A1c 8.6 H Calcium Troponin I < 0.01 Triglycerides 137 Cholesterol 157 LDL Cholesterol Direct 96 HDL Cholesterol 39 03/16/18 03/16/18 16:48 16:59 Sodium 141 Potassium 4.3 Chloride 102 Carbon Dioxide 27 Anion Gap 16 BUN 8 Creatinine 0.7 Est GFR ( Amer) > 60 Est GFR (Non-Af Amer) > 60 POC Glucose (mg/dL) 130 H Random Glucose 133 H Hemoglobin A1c Calcium 9.3 Troponin I < 0.01 Triglycerides Cholesterol LDL Cholesterol Direct HDL Cholesterol Assessment & Plan - Assessment and Plan (Free Text) Assessment: 63 year old female with past medical history of DM2 and HTN who presents with mid epigastric tenderness, nausea, vomiting and generalized weakness. Patient to be admitted for further investigation of epigastric tenderness, nausea, vomiting Plan: 1. Mid-epigastric tenderness accompanied with nausea and vomiting - hx of nausea and vomiting - etiology: Gastritis vs. gastroparesis - Hx of DM2, HTN - EKG NSR without ST elevations/depressions - Trending troponins - Gastronterology consult - Full liquid diet, advance as tolerated 2. Hyponatremia - 1 liter NS bolus given in ED - Continue with NS 150cc/hr - Recheck BMP this PM - Full liquid diet 3. Hx of HTN - Continue home medicaitons - Stable at this time 4. Hx of DM2 - ISS low - HgA1C - ACHS - Carb consistent diet 5. Weakness - Patient ambulates usually at home - PT eval and treat - monitor GI/DVT ppx - Protonix - SCD Case and plan discussed with attending - Date & Time Date: 03/16/18 Time: 08:15 <Can Becker - Last Filed: 03/17/18 07:48> Results - Vital Signs Recent Vital Signs: Last Vital Signs Temp 97.8 F 03/16/18 13:21 Pulse 61 03/16/18 18:00 Resp 18 03/16/18 15:16 BP 128/69 03/16/18 17:12 Pulse Ox 98 03/16/18 14:04 - Labs Result Diagrams: 03/16/18 02:15 03/16/18 16:48 Labs: Laboratory Results - last 24 hr 03/16/18 03/16/18 03/16/18 07:30 09:15 14:13 Sodium Potassium Chloride Carbon Dioxide Anion Gap BUN Creatinine Est GFR ( Amer) Est GFR (Non-Af Amer) POC Glucose (mg/dL) 162 H Random Glucose Hemoglobin A1c 8.6 H Calcium Troponin I < 0.01 Triglycerides 137 Cholesterol 157 LDL Cholesterol Direct 96 HDL Cholesterol 39 03/16/18 03/16/18 16:48 16:59 Sodium 141 Potassium 4.3 Chloride 102 Carbon Dioxide 27 Anion Gap 16 BUN 8 Creatinine 0.7 Est GFR ( Amer) > 60 Est GFR (Non-Af Amer) > 60 POC Glucose (mg/dL) 130 H Random Glucose 133 H Hemoglobin A1c Calcium 9.3 Troponin I < 0.01 Triglycerides Cholesterol LDL Cholesterol Direct HDL Cholesterol Attending/Attestation - Attestation I have personally seen and examined this patient.: Yes I have fully participated in the care of the patient.: Yes I have reviewed all pertinent clinical information: Yes Notes (Text): 03/16/18 63 year old female with past medical history of diabetes and hypertension who presented with complaint of epigastric pain, nausea, vomiting and weakness. She was found to have mild hyponatremia which improved after iv fluids bolus. Her weakness also improved and she was ambulating. GI evaluation was requested for epigastric pain. Will follow up with recommendations. CT abd/pelvis was reviewed. Continue with diet as tolerated. Serial cardiac enzymes are also ordered to rule out ACS. EKG was normal sinus rhythm without acute ST changes. Son is at bedside and questions were answered. Can Becekr MD Hospitalist.
--- NOTE | 2018-03-16 18:10 | CP.PCM.DIS ---
Provider - Provider Date of Admission: 03/16/18 06:13 Attending physician: Can Becker MD Primary care physician: PMD: Dr. Clifton Cespedes Consults: Gastroenterology: Dr. Rueda Time Spent in preparation of Discharge (in minutes): 35 Diagnosis - Discharge Diagnosis (1) HTN (hypertension) Status: Chronic (2) DM2 (diabetes mellitus, type 2) Status: Chronic (3) Epigastric abdominal pain Status: Resolved (4) Weakness Status: Resolved (5) Diarrhea Status: Acute (6) Vomiting Status: Acute Hospital Course - Lab Results Lab Results: Most Recent Lab Values WBC 13.4 10^3/ul (4.5-11.0) H D 03/16/18 02:15 RBC 5.74 10^6/uL (3.5-6.1) 03/16/18 02:15 Hgb 12.2 g/dL (12.0-16.0) 03/16/18 02:15 Hct 38.3 % (36.0-48.0) 03/16/18 02:15 MCV 66.7 fl (80.0-105.0) L 03/16/18 02:15 MCH 21.3 pg (25.0-35.0) L 03/16/18 02:15 MCHC 31.9 g/dl (31.0-37.0) 03/16/18 02:15 RDW 14.6 % (11.5-14.5) H 03/16/18 02:15 Plt Count 322 10^3/uL (120.0-450.0) 03/16/18 02:15 MPV 9.9 fl (7.0-11.0) 03/16/18 02:15 Gran % 68.6 % (50.0-68.0) H 03/16/18 02:15 Lymph % (Auto) 27.0 % (22.0-35.0) 03/16/18 02:15 [place] % (Auto) 3.9 % (1.0-6.0) 03/16/18 02:15 Eos % (Auto) 0.2 % (1.5-5.0) L 03/16/18 02:15 Baso % (Auto) 0.3 % (0.0-3.0) 03/16/18 02:15 Gran # 9.20 (1.4-6.5) H 03/16/18 02:15 Lymph # (Auto) 3.6 (1.2-3.4) H 03/16/18 02:15 [place] # (Auto) 0.5 (0.1-0.6) 03/16/18 02:15 Eos # (Auto) 0.0 (0.0-0.7) 03/16/18 02:15 Baso # (Auto) 0.04 K/mm3 (0.0-2.0) 03/16/18 02:15 Sodium 141 mmol/L (132-148) 03/16/18 16:48 Potassium 4.3 mmol/L (3.6-5.0) 03/16/18 16:48 Chloride 102 mmol/L (98-107) 03/16/18 16:48 Carbon Dioxide 27 mmol/L (21-33) 03/16/18 16:48 Anion Gap 16 (10-20) 03/16/18 16:48 BUN 8 mg/dL (7-21) 03/16/18 16:48 Creatinine 0.7 mg/dl (0.7-1.2) 03/16/18 16:48 Est GFR ( Amer) > 60 03/16/18 16:48 Est GFR (Non-Af Amer) > 60 03/16/18 16:48 POC Glucose (mg/dL) 130 mg/dL (65-110) H 03/16/18 16:59 Random Glucose 133 mg/dL (70-110) H 03/16/18 16:48 Hemoglobin A1c 8.6 % (4.2-6.5) H 03/16/18 07:30 Calcium 9.3 mg/dL (8.4-10.5) 03/16/18 16:48 Total Bilirubin 0.3 mg/dL (0.2-1.3) 03/16/18 02:15 AST 26 U/L (14-36) 03/16/18 02:15 ALT 26 U/L (7-56) 03/16/18 02:15 Alkaline Phosphatase 63 U/L (38-126) 03/16/18 02:15 Troponin I < 0.01 ng/mL 03/16/18 16:48 Total Protein 8.0 g/dL (5.8-8.3) 03/16/18 02:15 Albumin 4.3 g/dL (3.0-4.8) 03/16/18 02:15 Globulin 3.7 gm/dL 03/16/18 02:15 Albumin/Globulin Ratio 1.2 (1.1-1.8) 03/16/18 02:15 Triglycerides 137 mg/dL (35-160) 03/16/18 09:15 Cholesterol 157 mg/dL (130-200) 03/16/18 09:15 LDL Cholesterol Direct 96 mg/dL (0-129) 03/16/18 09:15 HDL Cholesterol 39 mg/dL (29-60) 03/16/18 09:15 Lipase 24 U/L (23-300) 03/16/18 02:15 Urine Color Yellow (YELLOW) 03/16/18 04:45 Urine Appearance Clear (CLEAR) 03/16/18 04:45 Urine pH 7.0 (4.7-8.0) 03/16/18 04:45 Ur Specific [place] 1.010 (1.005-1.035) 03/16/18 04:45 Urine Protein Negative mg/dL (<30 mg/dL) 03/16/18 04:45 Urine Glucose (UA) Negative mg/dL (NEGATIVE) 03/16/18 04:45 Urine Ketones Negative mg/dL (NEGATIVE) 03/16/18 04:45 Urine Blood Negative (NEGATIVE) 03/16/18 04:45 Urine Nitrate Negative (NEGATIVE) 03/16/18 04:45 Urine Bilirubin Negative (NEGATIVE) 03/16/18 04:45 Urine Urobilinogen 0.2 E.U./dL (<1 E.U./dL) 03/16/18 04:45 Ur Leukocyte Esterase Trace [place]/uL (NEGATIVE) H 03/16/18 04:45 Urine RBC 0 - 2 /hpf (0-2) 03/16/18 04:45 Urine WBC 1 - 3 /hpf (0-6) 03/16/18 04:45 Ur Epithelial Cells 6 - 8 /hpf (0-5) 03/16/18 04:45 Urine Bacteria Few (NEG) 03/16/18 04:45 - Hospital Course Hospital Course: Patient is a 63 year old female with past medical history of DM2, HTN that presented with mid epigastric pain, nausea, and vomiting - Date & Time of H&P Date of H&P: 03/16/18 Time of H&P: 09:30 Discharge Exam - Head Exam Head Exam: ATRAUMATIC, NORMAL INSPECTION, NORMOCEPHALIC Discharge Plan - Follow Up Plan Condition: GOOD Disposition: HOME/ ROUTINE Instructions: High Blood Pressure (DC), Acute Abdomen (Belly Pain), Adult (DC) , Diabetes Diet , Chest Pain (DC) Additional Instructions: Follow up with primary care physician within one week upon discharge Follow up with [facility] within 1 to 2 weeks upon discharge Advance diet as tolerated Adhere to a carb consistent diet Take medications as prescribed Return to ED if you experience chest pain, shortness of breath, persistent fever , headache, abdominal pain Referrals: Nick Rueda MD [Staff Provider] -
[2018-03-16 18:29] VITALS: PULSE 61
== END 2018-03-16 19:12 | disposition home or self-care (01) ==
LOC: ED 01:29 → ERH 06:13 → 3RSO 15:20
PROVIDERS: ADMIT Internal Medicine; ATTEND Internal Medicine
DX: R10.13 Epigastric pain (principal); R11.2 Nausea with vomiting, unspecified; R19.7 Diarrhea, unspecified; R53.1 Weakness; E87.1 Hypo-osmolality and hyponatremia; E11.9 Type 2 diabetes mellitus without complications; E78.00 Pure hypercholesterolemia, unspecified; E78.5 Hyperlipidemia, unspecified; I10 Essential (primary) hypertension; Z79.84 Long term (current) use of oral hypoglycemic drugs; Z87.440 Personal history of urinary (tract) infections
CPT/HCPCS: 74177; 80053; 80061; 81001; 82948; 83036; 83690; 84484; 85025; 87086; 93005; 96374; 96375; 99285; C9113; G0378; J2405; J7030; Q9967

== ENCOUNTER 2018-11-20 13:20 | Emergency (ER) | payer OTHER ==
[2018-11-20 13:21] VITALS: BMI 27.3
[2018-11-20 14:04] VITALS: TEMP 102.5
[2018-11-20 15:01] LABS: INFLUENZA A B NEGATIVE FOR FLU A/B (NEGATIVE)
[2018-11-20 16:20] LABS: URINE BILIRUBIN NEGATIVE (NEGATIVE); URINE BLOOD TRACE-INTACT (NEGATIVE); URINE COLOR YELLOW (YELLOW); URINE GLUCOSE (UA) 100 mg/dL (NEGATIVE); URINE LEUKOCYTE ESTERASE SMALL Leu/uL (NEGATIVE); URINE PROTEIN NEGATIVE mg/dL (<30 mg/dL); URINE UROBILINOGEN 0.2 E.U./dL (<1 E.U./dL)
[2018-11-20 16:21] LABS: URINE APPEARANCE SLIGHT-CLOUDY (CLEAR)
[2018-11-20 16:25] LABS: URINE AMORPHOUS SEDIMENT SMALL /hpf; URINE BACTERIA TRACE /hpf
--- NOTE | 2018-11-20 16:46 | RAD ---
Date of service: 11/20/2018 HISTORY: cough COMPARISON: 03/12/2018 TECHNIQUE: Chest PA and lateral FINDINGS: LUNGS: No active pulmonary disease. PLEURA: No significant pleural effusion identified. No pneumothorax apparent. CARDIOVASCULAR: No aortic atherosclerotic calcification present. Normal cardiac size. No pulmonary vascular congestion. OSSEOUS STRUCTURES: No significant abnormalities. VISUALIZED UPPER ABDOMEN: Normal. OTHER FINDINGS: None. IMPRESSION: No active disease. No significant interval change compared to the prior examination(s).
--- NOTE | 2018-11-20 17:15 | ED PDOC ---
Arrival/HPI - General Chief Complaint: Cough, Cold, Congestion Time Seen by Provider: 11/20/18 13:38 Historian: Patient - History of Present Illness Narrative History of Present Illness (Text): 11/20/18 17:11 63yo female with past medical history of Diabetes, hypertension who present with complaint of nonproductive cough, fever, right sided lower back pain x 2days. The son by the bedside states she took tylenol last night for her symptoms. Denies chest pain, SOB, diaphoresis, abdominal pain, dizziness, any other complaint. Past Medical History - Provider Review Nursing Documentation Reviewed: Yes - Infectious Disease Hx of Infectious Diseases: None - Tetanus Immunization Tetanus Immunization: Unknown - Reproductive Menopause: Yes - Cardiac Hx Cardiac Disorders: Yes Hx Hypertension: Yes - Pulmonary Hx Respiratory Disorders: No - Neurological Hx Neurological Disorder: No - HEENT Hx HEENT Disorder: Yes (uses glasses) - Renal Hx Renal Disorder: No - Endocrine/Metabolic Hx Endocrine Disorders: Yes Hx Diabetes Mellitus Type 2: Yes - Hematological/Oncological Hx Blood Disorders: No - Integumentary Hx Dermatological Disorder: No - Musculoskeletal/Rheumatological Hx Musculoskeletal Disorders: No Hx Falls: No - Gastrointestinal Hx Gastrointestinal Disorders: Yes Other/Comment: Gas pains, heart burn. - Genitourinary/Gynecological Hx Genitourinary Disorders: No - Psychiatric Hx Psychophysiologic Disorder: No Hx Substance Use: No - Surgical History Other/Comment: abdominal? - Anesthesia Hx Anesthesia: Yes Hx Anesthesia Reactions: No Hx Malignant Hyperthermia: No Family/Social History - Physician Review Nursing Documentation Reviewed: Yes Family/Social History: Unknown Family HX Smoking Status: Never Smoked Hx Alcohol Use: No Hx Substance Use: No Allergies/Home Meds Allergies/Adverse Reactions: Allergies No Known Allergies Allergy (Verified 02/11/16 00:56) Home Medications: Home Meds Medication Instructions Recorded Confirmed RX: Glimepiride [Amaryl] 1 mg PO DAILY 03/16/18 03/16/18 RX: Omeprazole 40 mg PO DAILY 03/16/18 03/16/18 RX: Ranitidine HCl [Zantac] 150 mg PO BID 03/16/18 03/16/18 RX: Rosuvastatin Calcium [Crestor] 10 mg PO HS 03/16/18 03/16/18 RX: metFORMIN [glucOPHAGE] 500 mg PO BID 06/07/18 06/07/18 Review of Systems - Physician Review All systems were reviewed & negative as marked: Yes - Review of Systems Constitutional: Fatigue, Fevers Eyes: Normal ENT: Normal Respiratory: Cough Cardiovascular: Normal Gastrointestinal: Normal Genitourinary Female: Normal Musculoskeletal: Normal Skin: Normal Neurological: Normal Endocrine: Normal Hemo/Lymphatic: Normal Psychiatric: Normal Physical Exam Vital Signs Reviewed: Yes Vital Signs Temp Pulse Resp BP Pulse Ox 11/20/18 16:10 79 21 120/60 91 L 11/20/18 14:26 85 20 132/73 97 11/20/18 14:01 102.5 F H 92 H 20 137/74 99 Temperature: Febrile Blood Pressure: Normal Pulse: Regular Respiratory Rate: Normal Appearance: Positive for: Well-Appearing, Non-Toxic, Comfortable Pain Distress: None Mental Status: Positive for: Alert and Oriented X 3 - Systems Exam Head: Present: Atraumatic, Normocephalic Pupils: Present: PERRL Extroacular Muscles: Present: EOMI Conjunctiva: Present: Normal Mouth: Present: Moist Mucous Membranes Neck: Present: Normal Range of Motion Respiratory/Chest: Present: Clear to Auscultation, Good Air Exchange. No: Respiratory Distress, Accessory Muscle Use, Wheezes, Decreased Breath Sounds, Rales, Retracting, Rhonchi Cardiovascular: Present: Regular Rate and Rhythm, Normal S1, S2. No: Murmurs Abdomen: No: Tenderness, Distention, Peritoneal Signs Back: Present: Normal Inspection. No: CVA Tenderness, Midline Tenderness, Paraspinal Tenderness, Pain with Leg Raise Upper Extremity: Present: Normal Inspection. No: Cyanosis, Edema Lower Extremity: Present: Normal Inspection. No: Edema Neurological: Present: GCS=15, CN II-XII Intact, Speech Normal Skin: Present: Warm, Dry, Normal Color. No: Rashes Psychiatric: Present: Alert, Oriented x 3, Normal Insight, Normal Concentration Medical Decision Making ED Course and Treatment: 11/20/18 18:07 PT present to emergency department for stated history. She was febrile on arrival. Rapid flu chest xray Urinalysis Rapid flu was negative. Pt's temp improved with antipyretics in emergency department she have UTI and was treated with Keflex Chest xray IMPRESSION: No active disease. No significant interval change compared to the prior examination(s). Result was DW both pt and her spouse. She was DC home with Keflex and antitussive for symptomatic tx. Advised to rest, drink plenty of fluid and follow up with her PMD/clinic [facility]RT emergency department for any new or worsening symptoms - Lab Interpretations Lab Results: Urine Color Yellow (YELLOW) 11/20/18 16:13 Urine Appearance Slight-cloudy (CLEAR) 11/20/18 16:13 Urine pH 6.0 (4.7-8.0) 11/20/18 16:13 Ur Specific [place] >= 1.030 (1.005-1.035) 11/20/18 16:13 Urine Protein Negative mg/dL (<30 mg/dL) 11/20/18 16:13 Urine Glucose (UA) 100 mg/dL (NEGATIVE) H 11/20/18 16:13 Urine Ketones Negative mg/dL (NEGATIVE) 11/20/18 16:13 Urine Blood Trace-intact (NEGATIVE) H 11/20/18 16:13 Urine Nitrate Negative (NEGATIVE) 11/20/18 16:13 Urine Bilirubin Negative (NEGATIVE) 11/20/18 16:13 Urine Urobilinogen 0.2 E.U./dL (<1 E.U./dL) 11/20/18 16:13 Ur Leukocyte Esterase Small [place]/uL (NEGATIVE) H 11/20/18 16:13 Urine RBC 5 - 10 /hpf (0-2) H 11/20/18 16:13 Urine WBC 5 - 10 /hpf (0-6) H 11/20/18 16:13 Ur Epithelial Cells 10 - 12 /hpf (0-5) H 11/20/18 16:13 Amorphous Sediment Small /hpf (NONE) 11/20/18 16:13 Urine Bacteria Trace /hpf (NONE) 11/20/18 16:13 - RAD Interpretation Radiology Orders: 11/20/18 14:17 CHEST TWO VIEWS (PA/LAT) [RAD] Stat - Medication Orders Current Medication Orders: Discontinued Medications Acetaminophen (Tylenol 325mg Tab) 650 mg PO STAT STA Stop: 11/20/18 14:19 Last Admin: 11/20/18 15:04 Dose: 650 mg MAR Pain/Vitals Document 11/20/18 15:04 MA (Rec: 11/20/18 15:06 MA [id number]) Pain Reassessment Is This A Pain ReAssessment? Yes Sleep Is patient sleeping during reassessment? No Presence of Pain Presence of Pain Yes Pain Scale Used Protocol: PSCALES Pain Scale Used Numeric Location Pain Location Body Site Back Description Intermittent Intensity 3 Pain Behavior Guarding Irritability Re-Assess: MAR Pain/Vitals Document 11/20/18 16:04 MA (Rec: 11/20/18 17:00 MA [id number]) Pain Reassessment Is This A Pain ReAssessment? Yes Sleep Is patient sleeping during reassessment? No Presence of Pain Presence of Pain Yes Pain Scale Used Protocol: PSCALES Pain Scale Used Numeric Location Pain Location Body Site Back Description Intermittent Intensity 1 Pain Behavior Guarding Irritability Disposition/Present on Arrival - Present on Arrival Any Indicators Present on Arrival: No History of DVT/PE: No History of Uncontrolled Diabetes: No Urinary Catheter: No History of Decub. Ulcer: No History Surgical Site Infection Following: None - Disposition Have Diagnosis and Disposition been Completed?: Yes Diagnosis: UTI (urinary tract infection), Viral URI Disposition: HOME/ ROUTINE Disposition Time: 17:20 Patient Plan: Discharge Condition: STABLE Discharge Instructions (ExitCare): Urinary Tract Infections in Adults, Viral Upper Respiratory Infection, Adult (DC) Additional Instructions: Follow up with your Doctor Return to emergency department for any new or worsening symptoms Prescriptions: Cephalexin [cephalexin] 500 mg PO TID #21 cap RX: Promethazine [Phenergan Syrup] 6.25 mg PO Q6 #100 cup Referrals: Selena Stallings MD [Medical Doctor] - Follow up with primary Forms: [employer] ([place]ian)
[2018-11-20 17:28] VITALS: BP 123/65; PULSE 75; RESP 17; O2SAT 95
== END 2018-11-20 17:34 | disposition home or self-care (01) ==
LOC: ED 13:20
DX: N39.0 Urinary tract infection, site not specified (principal); J06.9 Acute upper respiratory infection, unspecified; I10 Essential (primary) hypertension; E11.9 Type 2 diabetes mellitus without complications

== ENCOUNTER 2018-12-20 12:52 | Outpatient (CLI) | payer OTHER | END 2018-12-20 12:53 | disposition home or self-care (01) | LOC: RAD 12:52 | DX: E05.10 Thyrotoxicosis with toxic single thyroid nodule without thyrotoxic crisis or storm (principal) ==